=== PATIENT | female | born 1945 | race Caucasian/White ===

== ENCOUNTER → 2021-08-27 | Outpatient (CLI) | payer MEDICARE, OTHER ==
[~2021-08-27] MED LIST: ALPR0.5T72 PO; AMLO10TA82 PO; ASP81CT PO; GLYB5TAB6 PO; LANS15CA PO; LANS30CA8 PO; LOSA1TAB19 PO; LVT.025T PO; MTF500T PO
--- NOTE | 2021-08-27 14:34 | Diagnostic Imaging Report ---
INDICATION: PAIN OF LEFT KNEE JOINT COMPARISON: None. FINDINGS: Two views of the left knee were obtained. Expected postoperative changes are seen from prior left knee total arthroplasty. Femoral and tibial components appear well-seated. There is no evidence of periprosthetic fracture. No unexpected radiopaque foreign bodies are identified. IMPRESSION: Expected postsurgical changes from prior left knee total arthroplasty, as described above. Dictated by: Dictated on workstation # [id number]
== END ==
LOC: ORTHO 14:14
PROVIDERS: ATTEND Orthopaedic Surgery
DX: M25.562 Pain in left knee (principal); Z96.652 Presence of left artificial knee joint
CPT/HCPCS: 73560; G0463; 99203

== ENCOUNTER → 2022-01-12 | Outpatient (CLI) | payer MEDICARE, OTHER ==
--- NOTE | 2022-01-12 16:30 | Diagnostic Imaging Report ---
EXAMINATION: Left hip unilateral 2 or 3 views (w/pelvis when done) HISTORY: Pain COMPARISON: None available. FINDINGS: There is moderate narrowing and spurring within the hip. No superimposed acute fractures or dislocations appreciated. There is a clip in the left inguinal region. 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 IMPRESSION: 1. Chronic findings with no acute osseous abnormality. Dictated by: Dictated on workstation # [id number]
== END ==
LOC: ORTHO 12:30
PROVIDERS: ATTEND Orthopaedic Surgery
DX: M25.552 Pain in left hip (principal)
CPT/HCPCS: 20610; 73502; G0463

== ENCOUNTER → 2022-12-14 | Outpatient (CLI) | payer MEDICARE, OTHER | LOC: ORTHO 08:33 | PROVIDERS: ATTEND Orthopaedic Surgery | DX: M79.18 Myalgia, other site (principal) | CPT/HCPCS: 20552 ==